=== PATIENT | male | born 1965 | race Caucasian/White ===

== ENCOUNTER 2020-04-29 05:42 | Outpatient (RCR) | payer MEDICAID, OTHER ==
[~2020-04-29] VITALS: Ht 177.8 cm; Wt 102.3 kg
[2020-04-29] MEDS ORDERED: LISI-552 PO (12:44)
[2020-04-29] MEDS ORDERED: SUCR1TAB PO (12:44)
[2020-04-29] MEDS ORDERED: DULO20CA19 PO (12:44)
[2020-04-29] MEDS ORDERED: RT-ALBUINH IH (12:44)
[2020-04-29] MEDS ORDERED: OMEP40CA27 PO (12:44)
== END 2020-04-29 12:45 | disposition home or self-care (01) ==
LOC: PREOP 05:42
PROVIDERS: ATTEND Surgery
DX: Z01.818 Encounter for other preprocedural examination (principal); K92.1 Melena; K92.0 Hematemesis; Z86.010 Personal history of colon polyps

== ENCOUNTER → 2020-05-03 | Outpatient (CLI) | payer OTHER ==
[~2020-05-03] MED LIST: DULO20CA19 PO; LISI-552 PO; OMEP40CA27 PO; RT-ALBUINH IH; SUCR1TAB PO
== END ==
LOC: LAB FS 10:20
PROVIDERS: ATTEND Surgery
DX: Z01.812 Encounter for preprocedural laboratory examination (principal); K92.0 Hematemesis; K92.1 Melena; Z86.010 Personal history of colon polyps; Z20.822 Contact with and (suspected) exposure to COVID-19
CPT/HCPCS: 87635

== ENCOUNTER 2020-05-27 06:25 | Outpatient (RCR) | payer MEDICAID ==
[~2020-05-27] VITALS: Ht 177.8 cm; Wt 102.1 kg
[2020-05-27] MEDS ORDERED: FLUT9.9S16 NS (12:13)
[2020-05-27] MEDS ORDERED: FEXO-45 PO (12:13)
== END 2020-05-27 13:22 | disposition home or self-care (01) ==
LOC: PREOP 06:25
PROVIDERS: ATTEND Surgery
DX: Z01.818 Encounter for other preprocedural examination (principal); K92.0 Hematemesis; Z86.010 Personal history of colon polyps

== ENCOUNTER → 2020-05-31 | Outpatient (CLI) | payer OTHER ==
[~2020-05-31] MED LIST changes: +FEXO-45 PO; +FLUT9.9S16 NS; -LISI-552 PO; +LISI20TA26 PO
== END ==
LOC: LAB FS 10:50
PROVIDERS: ATTEND Surgery
DX: Z01.812 Encounter for preprocedural laboratory examination (principal); K92.1 Melena; Z20.822 Contact with and (suspected) exposure to COVID-19; Z86.010 Personal history of colon polyps
CPT/HCPCS: 87635

== ENCOUNTER → 2020-06-21 | Outpatient (CLI) | payer MEDICAID, OTHER | LOC: LAB FS 10:20 | PROVIDERS: ATTEND Surgery | DX: Z01.812 Encounter for preprocedural laboratory examination (principal); K92.0 Hematemesis; Z20.822 Contact with and (suspected) exposure to COVID-19; Z86.010 Personal history of colon polyps | CPT/HCPCS: 87635 ==

== ENCOUNTER → 2020-06-24 | Day surgery (SDC) | payer MEDICAID, OTHER ==
[~2020-06-24] VITALS: Ht 177.8 cm; Wt 102.1 kg
[~2020-06-24] MED LIST changes: +HURRICAINE EXT TUBE (BENZOCAINE) XX PRN; +LACTATED RINGERS 1,000 ML IV ONE; +LACTATED RINGERS 1,000 ML IV STA; +MIDAZOLAM 5 MG/5 ML (VERSED) VIAL ONE; +PROPOFOL INJECTION 50 ML IV ONE
[2020-06-24 08:10] VITALS: BP 158/100
[2020-06-24 09:20] VITALS: BP 133/88
[2020-06-24 09:25] VITALS: BP 128/86
--- NOTE | 2020-06-24 09:34 | Progress Note-Post Operative ---
Post-Operative Progess Note Surgeon (s)/[employer] (s) Surgeon TITUS ODONNELL DO [employer]: KARIE Kelly Pre-Operative Diagnosis Hematemesis, Melena, Hx of polyp Post-Operative Diagnosis Gastritis hiatal hernia colon polyps diverticula internal hemorrhoids Procedure & Operative Findings Date of Procedure 06/24/20 Procedure Performed/Findings EGD with bx Colon with snare Colon with bx Anesthesia Type IV sedation by RENT COLLECTOR Estimated Blood Loss Estimated blood loss (mL): scant Specimens/Packing Specimens Removed antral bx body of stomach bx x 2 GE jxn x 2 asc polyp transverse polyp x 2 rectal polyp x4 TITUS ODONNELL DO Jun 24, 2020 09:34
[2020-06-24 09:35] VITALS: BP 128/86
--- NOTE | 2020-06-24 09:35 | Endoscopy Discharge Instruct ---
Endo Procedure/Findings Findings 1.: Hiatal Hernia, Gastritis 2.: Polyp 3.: Diverticulosis 4.: Internal Hemorrhoids Discharge Instructions - Activity: You might feel a little sleepy until tomorrow. This is due to the medicine you received to relax you. Until tomorrow, you should: NOT drive a car, operate machinery or power tools. NOT drink any alcoholic beverages. NOT make any important decisions or sign importortant papers. Do not return to work until tomorrow, unless otherwise instructed. Resume previous activities tomorrow. Diet: Start by taking liquids. If you tolerate liquids, advance to solid food. 1.: EGD in 1 year 2.: Colonoscopy in 1 year Notify Physician - If you experience excessive bleeding, unusual abdominal pain, fever, or chest pain, contact your doctor immediately. TITUS ODONNELL DO Jun 24, 2020 09:35
[2020-06-24 10:01] VITALS: BP 145/79
--- NOTE | 2020-06-24 12:49 | Anesthesia-General Post-Op ---
MAC Patient Condition Mental Status/LOC: Same as Preop Cardiovascular: Satisfactory Nausea/Vomiting: Absent Respiratory: Satisfactory Pain: Controlled Complications: Absent Post Op Complications Complications None Follow Up Care/Instructions Patient Instructions None needed. Anesthesiology Discharge Order Discharge Order Patient is doing well, no complaints, stable vital signs, no apparent adverse anesthesia problems. No complications reported per nursing. CARL PINK CRNA Jun 24, 2020 12:49
--- NOTE | 2020-06-25 02:43 | OPERATIVE REPORT ---
DATE OF SERVICE: PREOPERATIVE DIAGNOSES: Hematemesis, melena, history of colon polyps. POSTOPERATIVE DIAGNOSES: Gastritis, hiatal hernia, colon polyps, diverticula, internal hemorrhoids. PROCEDURES: 1. EGD with biopsy. 2. Colonoscopy with snare polypectomy. 3. Colonoscopy with cold biopsy. SURGEON: Manuel Haywood, DO HOSPICE CARE SALES CONSULTANT: Balaji Dennis, MS3. ANESTHESIA: IV sedation by the SPINNER OPEN END. SPECIMEN: Biopsy from the antrum, two biopsies of the body of stomach, two biopsies of the GE junction as well as a descending colon polyp, transverse colon polyp x2 and rectal polyp x4. PROCEDURE NOTE: After informed consent was obtained, the patient was brought to the endoscopy suite, placed in bed in left lateral decubitus position. He was administered IV sedation by the SPINNER OPEN END who then monitored his vitals the entire time, heart rate, blood pressure and pulse ox and we started with the EGD, placing scope down the mouth through the esophagus into the stomach, noted some changes at the GE junction and some gastritis, took a picture, pushed into the stomach and took a picture and pushed past the antrum into the duodenum, took a picture and then pulled back and retroflexed the scope, saw small hiatal hernia, did two biopsies of the body of stomach. Then pulled the scope into the GE junction and did two biopsies here. Pushed the scope back into the stomach, suctioned all the air out and then pulled the scope up the esophagus and out the mouth. Switched camera, switched gloves, went down below, started the colonoscopy, pushed in, on the way in, noted a polyp in the ascending colon, did a snare polypectomy of this, able to get to the cecum, took a picture of appendiceal orifice, noted the ileocecal valve and then slowly withdrew the scope insufflating to look circumferentially at the stevens looking the cecum, up the ascending colon to the hepatic flexure, then down the transverse colon. In the transverse colon, saw a flat polyp, did a biopsy of this and then encountered a large polyp in the transverse colon, did another snare polypectomy, then continued down to the splenic flexure and then into the descending colon and down into the sigmoid and finally into the rectum, retroflexed in rectal vault, saw four polyps, we were able to do snare polypectomy of all of these and then suction them up when I retroflexed the scope, saw some small internal hemorrhoids and then the scope was removed. The patient tolerated the procedure. He was recovered in endoscopy suite. Job ID: [id number] DocumentID: [id number] Dictated Date: 06/24/2020 19:36:31 Net Lead Developer Date: 06/25/2020 02:41:50 Dictated By: DO MIKE REESE
== END | disposition home or self-care (01) ==
LOC: ENDO 07:54
PROVIDERS: ATTEND Surgery
DX: D12.3 Benign neoplasm of transverse colon (principal); K63.5 Polyp of colon; D12.8 Benign neoplasm of rectum; K29.70 Gastritis, unspecified, without bleeding; K92.1 Melena; K44.9 Diaphragmatic hernia without obstruction or gangrene; K57.30 Diverticulosis of large intestine without perforation or abscess without bleeding; K64.8 Other hemorrhoids; K92.0 Hematemesis; I10 Essential (primary) hypertension; J45.909 Unspecified asthma, uncomplicated; K21.9 Gastro-esophageal reflux disease without esophagitis; F17.210 Nicotine dependence, cigarettes, uncomplicated; Z79.899 Other long term (current) drug therapy; Z79.51 Long term (current) use of inhaled steroids; Z86.010 Personal history of colon polyps
CPT/HCPCS: 88305

== ENCOUNTER 2020-08-24 06:31 | Emergency (ER) | payer OTHER ==
[~2020-08-24] VITALS: Ht 175.2 cm; Wt 95.0 kg
[~2020-08-24 06:31] MED LIST changes: -HURRICAINE EXT TUBE (BENZOCAINE) XX PRN; -LACTATED RINGERS 1,000 ML IV ONE; -LACTATED RINGERS 1,000 ML IV STA; -MIDAZOLAM 5 MG/5 ML (VERSED) VIAL ONE; -PROPOFOL INJECTION 50 ML IV ONE
[2020-08-24 07:03] LABS: BASOPHILS % (AUTO) 0 % (0-10); EOSINOPHILS # (AUTO) 0.3 10^3/uL (0.0-0.3); EOSINOPHILS % (AUTO) 3 % (0-10); HEMATOCRIT 46 % (40-54); HEMOGLOBIN 15.2 G/DL (13.3-17.7); LYMPHOCYTES # (AUTO) 2.3 X 10^3 (1.0-4.0); LYMPHOCYTES % (AUTO) 24 % (12-44); MEAN CORPUSCULAR HEMOGLOBIN 30 PG (25-34); MEAN CORPUSCULAR HGB CONC 33 G/DL (32-36); MEAN CORPUSCULAR VOLUME 92 FL (80-99); MEAN PLATELET VOLUME 10.6 FL (7.4-10.4); MONOCYTES # (AUTO) 1.1 X 10^3 (0.0-1.0); MONOCYTES % (AUTO) 12 % (0-12); NEUTROPHILS # (AUTO) 5.8 X 10^3 (1.8-7.8); NEUTROPHILS % (AUTO) 61 % (42-75); PLATELET COUNT 257 10^3/uL (130-400); WHITE BLOOD COUNT 9.6 10^3/uL (4.3-11.0)
[2020-08-24 07:21] LABS: ACETAMINOPHEN < 10 UG/ML (10-30); ALANINE AMINOTRANSFERASE 22 U/L (0-55); ALBUMIN 4.6 GM/DL (3.2-4.5); ALKALINE PHOSPHATASE 112 U/L (40-136); BILIRUBIN,TOTAL 0.5 MG/DL (0.1-1.0); BUN/CREATININE RATIO 7; CALCIUM 9.6 MG/DL (8.5-10.1); CARBON DIOXIDE 24 MMOL/L (21-32); CHLORIDE 95 MMOL/L (98-107); CREATININE SERUM 0.82 MG/DL (0.60-1.30); GFR ESTIMATED > 60; GLUCOSE 122 MG/DL (70-105); POTASSIUM 4.4 MMOL/L (3.6-5.0); SALICYLATE < 0.3 MG/DL (5.0-20.0); SODIUM 132 MMOL/L (135-145); TOTAL PROTEIN 8.4 GM/DL (6.4-8.2)
--- NOTE | 2020-08-24 07:43 | ED Psychosocial ---
General Chief Complaint: Psych/Social Disorder Stated Complaint: MENTAL EVALUATION Nursing Triage Note: Patient came to the ER for a mental health evaluation. Patient states that he is not suicidal but does appear to be having some mental health issues. Patient is very paranoid and emotional. Patient is unable to form a sentence that adequately conveys what he means. Patient is distractible and cannot have a full conversation about one subject. Patient has a history of alcohol abuse. Patient was in rehab approximately 3 weeks ago. Patients father is with him and states he has been like this for 2 weeks. History of Present Illness Date Seen by Provider: August 24, 2020 Time Seen by Provider: 07:00 Initial Comments 55-year-old male presents with his father (who he is currently living with for the past couple years) with concern of his not acting right or thinking clearly for the past 2 and half weeks since coming home from [facility] for drug and alcohol rehabilitation. Patient is confused and making any sense or thinking clearly. He is confused about his medications, he is paranoid, he is anxious. He denies any suicidal or homicidal ideation has not been violent. Allergies and Home Medications Allergies Coded Allergies: No Known Drug Allergies (Unverified , 04/29/20) Home Medications Duloxetine HCl 20 Mg Capsule.dr, 40 MG PO DAILY, (Reported) Fexofenadine HCl 60 Mg Tablet, 60 MG PO DAILY, (Reported) Fluticasone Furoate 5.9 Ml [place].susp, 5.9 ML NS DAILY, (Reported) Lisinopril 20 Mg Tablet, 20 MG PO DAILY, (Reported) Omeprazole 40 Mg Capsule.dr, 40 MG PO DAILY, (Reported) Sucralfate 1 Gm Tablet, 1 GM PO BIDAC, (Reported) Patient Home Medication List Home Medication List Reviewed: Yes Review of Systems Constitutional: No fever, No malaise, No weakness EENTM: no symptoms reported Respiratory: No cough, No short of breath Cardiovascular: No chest pain, No edema, No palpitations Gastrointestinal: No abdominal pain, No constipation, No diarrhea, No nausea, No vomiting Musculoskeletal: No back pain, No joint pain Skin: No change in color, No rash Psychiatric/Neurological: See HPI, Anxiety; Denies Headache, Denies Numbness, Denies Paresthesia, Denies Seizure Past Eibiudp-Extnqo-Atppio Hx Past Med/Social Hx: Reviewed Nursing Past Med/Soc Hx Patient Social History Alcohol Use: Past History Alcohol Beverage of Choice: Beer Smoking Status: Current Everyday Smoker Type Used: Cigarettes Recent Infectious Disease Expo: No Recent Hopitalizations: No Immunizations Up To Date PED Vaccines UTD: No Date of Influenza Vaccine: Jan 18, 2020 Seasonal Allergies Seasonal Allergies: Yes Past Medical History Surgeries: Yes (shoulder sx, ) Respiratory: Yes (morning congestion) Asthma Cardiac: Yes Hypertension Neurological: No Genitourinary: No Gastrointestinal: Yes (hematemesis, cysts on liver) Gastroesophageal Reflux, Polyps Musculoskeletal: No Endocrine: No HEENT: Yes (dentures) Cancer: No Psychosocial: Yes Anxiety Integumentary: Yes Psoriasis Blood Disorders: No Physical Exam Vital Signs - First Documented 08/24/20 06:54 Temp 36.8 Pulse 100 Resp 22 B/P (MAP) 164/88 (113) Pulse Ox 100 O2 Delivery Room Air Capillary Refill : Less Than 3 Seconds Height, Weight, BMI Height: '" Weight: lbs. oz. kg; 30.00 BMI Method: General Appearance: WD/WN, no apparent distress HEENT: PERRL/EOMI, normal ENT inspection Neck: non-tender, supple Respiratory: chest non-tender, lungs clear, normal breath sounds, no respiratory distress, no accessory muscle use Cardiovascular: regular rate, rhythm, no edema, no JVD Gastrointestinal: normal bowel sounds, non tender, soft Extremities: non-tender, no pedal edema Neurologic/Psychiatric: honey blender II-XII nml as tested, no motor/sensory deficits, alert, normal mood/affect, oriented x 3 Appearance/Memory: appropriate appearance, impaired insight, impaired recent memory Behavior/Eye Contact: cooperative, good eye contact, normal speech Thoughts/Hallucinations: delusions, flight of ideas, incoherent, paranoid Skin: normal color, warm/dry Progress/Results/Core Measures Results/Orders Lab Results Laboratory Tests Test 08/24/20 06:51 08/24/20 07:49 Range/Units White Blood Count 9.6 4.3-11.0 10^3/uL Red Blood Count 4.99 4.35-5.85 10^6/uL Hemoglobin 15.2 13.3-17.7 G/DL Hematocrit 46 40-54 % Mean Corpuscular Volume 92 80-99 FL Mean Corpuscular Hemoglobin 30 25-34 PG Mean Corpuscular Hemoglobin Concent 33 32-36 G/DL Red Cell Distribution Width 14.6 H 10.0-14.5 % Platelet Count 257 130-400 10^3/uL Mean Platelet Volume 10.6 H 7.4-10.4 FL Neutrophils (%) (Auto) 61 42-75 % Lymphocytes (%) (Auto) 24 12-44 % Monocytes (%) (Auto) 12 0-12 % Eosinophils (%) (Auto) 3 0-10 % Basophils (%) (Auto) 0 0-10 % Neutrophils # (Auto) 5.8 1.8-7.8 X 10^3 Lymphocytes # (Auto) 2.3 1.0-4.0 X 10^3 Monocytes # (Auto) 1.1 H 0.0-1.0 X 10^3 Eosinophils # (Auto) 0.3 0.0-0.3 10^3/uL Basophils # (Auto) 0.0 0.0-0.1 10^3/uL Sodium Level 132 L 135-145 MMOL/L Potassium Level 4.4 3.6-5.0 MMOL/L Chloride Level 95 L 98-107 MMOL/L Carbon Dioxide Level 24 21-32 MMOL/L Anion Gap 13 5-14 MMOL/L Blood Urea Nitrogen 6 L 7-18 MG/DL Creatinine 0.82 0.60-1.30 MG/DL Estimat Glomerular Filtration Rate > 60 BUN/Creatinine Ratio 7 Glucose Level 122 H 70-105 MG/DL Calcium Level 9.6 8.5-10.1 MG/DL Corrected Calcium 8.5-10.1 MG/DL Total Bilirubin 0.5 0.1-1.0 MG/DL Aspartate Amino Transf (AST/SGOT) 25 5-34 U/L Alanine Aminotransferase (ALT/SGPT) 22 0-55 U/L Alkaline Phosphatase 112 40-136 U/L Total Protein 8.4 H 6.4-8.2 GM/DL Albumin 4.6 H 3.2-4.5 GM/DL Salicylates Level < 0.3 L 5.0-20.0 MG/DL Acetaminophen Level < 10 L 10-30 UG/ML Serum Alcohol < 10 <10 MG/DL Urine Color YELLOW Urine Clarity CLEAR Urine pH 6.0 5-9 Urine Specific [place] 1.020 1.016-1.022 Urine Protein NEGATIVE NEGATIVE Urine Glucose (UA) NEGATIVE NEGATIVE Urine Ketones NEGATIVE NEGATIVE Urine Nitrite NEGATIVE NEGATIVE Urine Bilirubin NEGATIVE NEGATIVE Urine Urobilinogen 1.0 < = 1.0 MG/DL Urine Leukocyte Esterase NEGATIVE NEGATIVE Urine RBC (Auto) NEGATIVE NEGATIVE Urine RBC NONE /HPF Urine WBC 0-2 /HPF Urine Squamous Epithelial Cells 2-5 /HPF Urine Crystals NONE /LPF Urine Bacteria TRACE /HPF Urine Casts NONE /LPF Urine Mucus MODERATE H /LPF Urine Culture Indicated NO Urine Opiates Screen NEGATIVE NEGATIVE Urine Oxycodone Screen NEGATIVE NEGATIVE Urine Methadone Screen NEGATIVE NEGATIVE Urine Propoxyphene Screen NEGATIVE NEGATIVE Urine Barbiturates Screen NEGATIVE NEGATIVE Ur Tricyclic Antidepressants Screen NEGATIVE NEGATIVE Urine Phencyclidine Screen NEGATIVE NEGATIVE Urine Amphetamines Screen NEGATIVE NEGATIVE Urine Methamphetamines Screen NEGATIVE NEGATIVE Urine Benzodiazepines Screen NEGATIVE NEGATIVE Urine Cocaine Screen NEGATIVE NEGATIVE Urine Cannabinoids Screen NEGATIVE NEGATIVE My Orders Orders - FABIO MARTINEZ DO Ct Head Wo (08/24/20 07:43) Vital Signs/I&O 08/24/20 08/24/20 06:54 10:29 Temp 36.8 36.8 Pulse 100 87 Resp 22 20 B/P (MAP) 164/88 (113) 157/82 (113) Pulse Ox 100 100 O2 Delivery Room Air Blood Pressure Mean: 113 Progress Progress Note : Progress Note Patient delusional and paranoid without suicidal or homicidal ideation or threat to himself. His father is unable to take care of him any longer as he has become too much to handle. Looked through his bag and box of medications and no evidence of any antipsychotics, just naltrexone, lisinopril, omeprazole and Carafate along with a few [id number] medications. Urine drug screen is negative. Lab chemistries, EKG and head CT are all normal. Will get a MH screening for assistance MH screener worked out a safety plan and pt DC'd home with planned MH follow-up this week. Discussed w patient and his father and they express understanding. Advised return to the ER or call 911 for any crisis. Initial ECG Impression Date: August 24, 2020 Initial ECG Impression Time: 07:05 Initial ECG Rate: 95 Initial ECG Rhythm: Normal Sinus Initial ECG Impression: Normal Initial ECG Comparisson: No Previous ECG Available Diagnostic Imaging Comments Date of Exam:08/24/20 CT HEAD WO PROCEDURE: CT head without contrast. TECHNIQUE: Multiple contiguous axial images were obtained through the brain without the use of intravenous contrast. Auto Exposure Controls were utilized during the CT exam to meet ALARA standards for radiation dose reduction. INDICATION: New onset psychosis. COMPARISON: None available. FINDINGS: No intracranial hyperdense hemorrhage or space-occupying mass. No hydrocephalus or midline shift. Suarez-white matter differentiation is well-preserved. Pituitary is unremarkable. No cerebellar tonsillar ectopia. No skull fracture. Mastoid air cells are clear. Mild mucosal thickening in the ethmoid and maxillary sinuses. IMPRESSION: No acute intracranial process by CT. Dictated on workstation # [id number] Dict: 08/24/20 [id number] Trans: 08/24/2006 CVB [id number] Interpreted by: LUKE ROLEL MD Electronically signed by: Departure Impression Primary Impression: Acute psychosis Additional Impression: Mental status alteration Qualified Codes: R41.82 - Altered mental status, unspecified Disposition: 01 HOME, SELF-CARE (staying with his father (as responsible individual)) Condition: Stable Departure-Patient Inst. Decision time for Depature: 10:10 Referrals: ARASH,LOCAL PHYSICIAN (PCP) Primary Care Physician NATALY KWOK APRN (Family) Primary Care Physician Patient Instructions: Altered Mental Status (DC) Add. Discharge Instructions: You are advised to follow up with Mental Health this week. Return to the ER if you are having any significant trouble and need assistance. Otherwise continue your current medication as previously given: Lisinopril Carafate Pantaprozole Call your Primary Care Doctor to arrange a follow up appointment as well. All discharge instructions reviewed with patient and/or family. Voiced understanding. FABIO MARTINEZ DO August 24, 2020 07:43
[2020-08-24 07:58] LABS: BACTERIA,URINE TRACE /HPF; BILIRUBIN,URINE NEGATIVE (NEGATIVE); CLARITY,URINE CLEAR; COLOR,URINE YELLOW; GLUCOSE, URINE (UA) NEGATIVE (NEGATIVE); KETONES,URINE NEGATIVE (NEGATIVE); LEUKOCYTE ESTERASE ,URINE NEGATIVE (NEGATIVE); NITRITE,URINE NEGATIVE (NEGATIVE); PROTEIN,URINE NEGATIVE (NEGATIVE); WBC,URINE 0-2 /HPF
[2020-08-24 08:05] LABS: AMPHETAMINE SCREEN, URINE NEGATIVE (NEGATIVE); BARBITURATE SCREEN URINE NEGATIVE (NEGATIVE); BENZODIAZEPINES SCREEN URINE NEGATIVE (NEGATIVE); CANNABINOID SCREEN, URINE NEGATIVE (NEGATIVE); COCAINE SCREEN URINE NEGATIVE (NEGATIVE); METHADONE STAT NEGATIVE (NEGATIVE); METHAMPHETAMINE SCREEN URINE S NEGATIVE (NEGATIVE); OPIATE SCREEN URINE NEGATIVE (NEGATIVE); OXYCODONE STAT NEGATIVE (NEGATIVE); PROPOXYPHENE STAT NEGATIVE (NEGATIVE); TRICYCLIC ANTIDEPRESSANTS SCRE NEGATIVE (NEGATIVE)
--- NOTE | 2020-08-24 08:07 | Diagnostic Imaging Report ---
PROCEDURE: CT head without contrast. TECHNIQUE: Multiple contiguous axial images were obtained through the brain without the use of intravenous contrast. Auto Exposure Controls were utilized during the CT exam to meet ALARA standards for radiation dose reduction. INDICATION: New onset psychosis. COMPARISON: None available. FINDINGS: No intracranial hyperdense hemorrhage or space-occupying mass. No hydrocephalus or midline shift. Suarez-white matter differentiation is well-preserved. Pituitary is unremarkable. No cerebellar tonsillar ectopia. No skull fracture. Mastoid air cells are clear. Mild mucosal thickening in the ethmoid and maxillary sinuses. IMPRESSION: No acute intracranial process by CT. Dictated by: Dictated on workstation # [id number]
[2020-08-24 10:29] VITALS: BP 157/82
== END 2020-08-24 10:26 | disposition home or self-care (01) ==
LOC: EDUNIT# 06:31 → ER FS 06:34
DX: F23 Brief psychotic disorder (principal); R41.82 Altered mental status, unspecified; I10 Essential (primary) hypertension; J45.909 Unspecified asthma, uncomplicated; K21.9 Gastro-esophageal reflux disease without esophagitis; F41.9 Anxiety disorder, unspecified; F17.210 Nicotine dependence, cigarettes, uncomplicated; Z79.899 Other long term (current) drug therapy
CPT/HCPCS: 36415; 70450; 80053; 80306; 81000; 85025; 93005; 99283; G0480 ×3; 80320; 80329

== ENCOUNTER 2020-08-27 14:11 | Emergency (ER) | payer OTHER ==
--- NOTE | 2020-08-27 14:17 | ED General ---
General Stated Complaint: AMS History of Present Illness Date Seen by Provider: August 27, 2020 Time Seen by Provider: 14:17 Initial Comments 55-year-old female presents for evaluation. EMS was called the patient's office because he was "not acting right is sounds like he possibly could have had a pseudoseizure. Patient was "stumbling around at the office" they report that since last he has been getting worse. Patient was recently discharged from alcohol treatment 3 weeks ago. Patient laughing 1 minute and tearful the next. Patient denies relapsing. Patient was seen here 3 days ago for acute psychosis. At that time he had a negative head CT, negative alcohol and urine drug screen. Patient does not provide a lot of information. Office staff reports he is worse today than he was last Allergies and Home Medications Allergies Coded Allergies: No Known Drug Allergies (Unverified , 04/29/20) Home Medications Duloxetine HCl 20 Mg Capsule.dr, 40 MG PO DAILY, (Reported) Fexofenadine HCl 60 Mg Tablet, 60 MG PO DAILY, (Reported) Fluticasone Furoate 5.9 Ml [place].susp, 5.9 ML NS DAILY, (Reported) Lisinopril 20 Mg Tablet, 20 MG PO DAILY, (Reported) Omeprazole 40 Mg Capsule.dr, 40 MG PO DAILY, (Reported) Sucralfate 1 Gm Tablet, 1 GM PO BIDAC, (Reported) Patient Home Medication List Home Medication List Reviewed: Yes Review of Systems Review of Systems Constitutional: No chills, No fever EENTM: no symptoms reported Respiratory: no symptoms reported Cardiovascular: see HPI Gastrointestinal: no symptoms reported Genitourinary: no symptoms reported Musculoskeletal: no symptoms reported Skin: no symptoms reported Psychiatric/Neurological: See HPI Past Gcttxgx-Uryhbz-Rzvxxn Hx Past Med/Social Hx: Reviewed Nursing Past Med/Soc Hx Patient Social History Alcohol Beverage of Choice: Beer Type Used: Cigarettes Recent Hopitalizations: No Immunizations Up To Date PED Vaccines UTD: No Date of Influenza Vaccine: Jan 18, 2020 Seasonal Allergies Seasonal Allergies: Yes Past Medical History Surgeries: Yes (shoulder sx, ) Respiratory: Yes (morning congestion) Asthma Cardiac: Yes Hypertension Neurological: No Genitourinary: No Gastrointestinal: Yes (hematemesis, cysts on liver) Gastroesophageal Reflux, Polyps Musculoskeletal: No Endocrine: No HEENT: Yes (dentures) Cancer: No Psychosocial: Yes Anxiety Integumentary: Yes Psoriasis Blood Disorders: No Physical Exam Vital Signs Vital Signs - First Documented 08/27/20 14:16 Temp 36.5 Pulse 94 Resp 18 B/P (MAP) 131/76 (94) Pulse Ox 97 O2 Delivery Room Air Capillary Refill : Height, Weight, BMI Height: '" Weight: lbs. oz. kg; 30.00 BMI Method: General Appearance: Other (Anxious, very volatile mood some minute laughing the next tearful.) HEENT: PERRL/EOMI Neck: Full Range of Motion, Normal Inspection Respiratory: Lungs Clear, Normal Breath Sounds Cardiovascular: Regular Rate, Rhythm, No Edema Gastrointestinal: Non Tender, Soft Extremity: Normal Capillary Refill, Normal Inspection, Normal Range of Motion Neurologic/Psychiatric: Alert, brand activation manager II-XII Norm as Tested, Other (Labile mood, depressed, mild psychosis) Skin: Normal Color, Warm/Dry Progress/Results/Core Measures Suspected Sepsis SIRS Temperature: Pulse: Respiratory Rate: Laboratory Tests 08/27/20 14:20: White Blood Count 11.6H Blood Pressure / Mean: Laboratory Tests 08/27/20 14:20: Creatinine 0.76, Platelet Count 246, Total Bilirubin 0.6 Results/Orders Lab Results Laboratory Tests Test 08/27/20 14:20 08/27/20 14:30 08/27/20 14:35 Range/Units White Blood Count 11.6 H 4.3-11.0 10^3/uL Red Blood Count 4.71 4.35-5.85 10^6/uL Hemoglobin 14.3 13.3-17.7 G/DL Hematocrit 44 40-54 % Mean Corpuscular Volume 93 80-99 FL Mean Corpuscular Hemoglobin 30 25-34 PG Mean Corpuscular Hemoglobin Concent 33 32-36 G/DL Red Cell Distribution Width 14.1 10.0-14.5 % Platelet Count 246 130-400 10^3/uL Mean Platelet Volume 10.9 H 7.4-10.4 FL Immature Granulocyte % (Auto) 0 % Neutrophils (%) (Auto) 66 42-75 % Lymphocytes (%) (Auto) 22 12-44 % Monocytes (%) (Auto) 10 0-12 % Eosinophils (%) (Auto) 1 0-10 % Basophils (%) (Auto) 1 0-10 % Neutrophils # (Auto) 7.7 1.8-7.8 X 10^3 Lymphocytes # (Auto) 2.6 1.0-4.0 X 10^3 Monocytes # (Auto) 1.1 H 0.0-1.0 X 10^3 Eosinophils # (Auto) 0.2 0.0-0.3 10^3/uL Basophils # (Auto) 0.1 0.0-0.1 10^3/uL Immature Granulocyte # (Auto) 0.0 0.0-0.1 10^3/uL Sodium Level 132 L 135-145 MMOL/L Potassium Level 4.9 3.6-5.0 MMOL/L Chloride Level 96 L 98-107 MMOL/L Carbon Dioxide Level 26 21-32 MMOL/L Anion Gap 10 5-14 MMOL/L Blood Urea Nitrogen 8 7-18 MG/DL Creatinine 0.76 0.60-1.30 MG/DL Estimat Glomerular Filtration Rate > 60 BUN/Creatinine Ratio 11 Glucose Level 116 H 70-105 MG/DL Calcium Level 9.4 8.5-10.1 MG/DL Corrected Calcium 9.1 8.5-10.1 MG/DL Magnesium Level 2.2 1.6-2.4 MG/DL Total Bilirubin 0.6 0.1-1.0 MG/DL Aspartate Amino Transf (AST/SGOT) 40 H 5-34 U/L Alanine Aminotransferase (ALT/SGPT) 22 0-55 U/L Alkaline Phosphatase 94 40-136 U/L Troponin I < 0.30 <0.30 NG/ML Total Protein 8.1 6.4-8.2 GM/DL Albumin 4.4 3.2-4.5 GM/DL Serum Alcohol < 10 <10 MG/DL Glucometer 119 H 70-110 MG/DL Urine Color YELLOW Urine Clarity CLEAR Urine pH 6.0 5-9 Urine Specific [place] 1.010 L 1.016-1.022 Urine Protein NEGATIVE NEGATIVE Urine Glucose (UA) NEGATIVE NEGATIVE Urine Ketones NEGATIVE NEGATIVE Urine Nitrite NEGATIVE NEGATIVE Urine Bilirubin NEGATIVE NEGATIVE Urine Urobilinogen 1.0 < = 1.0 MG/DL Urine Leukocyte Esterase NEGATIVE NEGATIVE Urine RBC (Auto) NEGATIVE NEGATIVE Urine RBC NONE /HPF Urine WBC RARE /HPF Urine Squamous Epithelial Cells RARE /HPF Urine Crystals NONE /LPF Urine Bacteria NEGATIVE /HPF Urine Casts NONE /LPF Urine Mucus NEGATIVE /LPF Urine Culture Indicated NO Urine Opiates Screen NEGATIVE NEGATIVE Urine Oxycodone Screen NEGATIVE NEGATIVE Urine Methadone Screen NEGATIVE NEGATIVE Urine Propoxyphene Screen NEGATIVE NEGATIVE Urine Barbiturates Screen NEGATIVE NEGATIVE Ur Tricyclic Antidepressants Screen NEGATIVE NEGATIVE Urine Phencyclidine Screen NEGATIVE NEGATIVE Urine Amphetamines Screen NEGATIVE NEGATIVE Urine Methamphetamines Screen NEGATIVE NEGATIVE Urine Benzodiazepines Screen NEGATIVE NEGATIVE Urine Cocaine Screen NEGATIVE NEGATIVE Urine Cannabinoids Screen NEGATIVE NEGATIVE My Orders Orders - VAL ZAMBRANO DO Alcohol (08/27/20 14:23) Cbc With Automated Diff (08/27/20 14:23) Comprehensive Metabolic Panel (08/27/20 14:23) Drug Screen Stat (Urine) (08/27/20 14:23) Magnesium (08/27/20 14:23) Ua Culture If Indicated (08/27/20 14:23) Troponin I Fs (08/27/20 14:23) Vital Signs/I&O 08/27/20 14:16 Temp 36.5 Pulse 94 Resp 18 B/P (MAP) 131/76 (94) Pulse Ox 97 O2 Delivery Room Air Capillary Refill : Departure Impression Primary Impression: Acute reaction to situational stress Disposition: 01 HOME, SELF-CARE Condition: Stable Departure-Patient Inst. Referrals: NATALY KWOK APRN (PCP) Primary Care Physician [facility] (Family) Primary Care Physician Patient Instructions: Acute Psychosis (DC), Stress Add. Discharge Instructions: Follow-up with your primary care provider for continued evaluation and further outpatient work-up VAL ZAMBRANO DO August 27, 2020 14:17
[2020-08-27 14:38] LABS: HEMATOCRIT 44 % (40-54); HEMOGLOBIN 14.3 G/DL (13.3-17.7); MEAN CORPUSCULAR HEMOGLOBIN 30 PG (25-34); MEAN CORPUSCULAR HGB CONC 33 G/DL (32-36); MEAN CORPUSCULAR VOLUME 93 FL (80-99); MEAN PLATELET VOLUME 10.9 FL (7.4-10.4); PLATELET COUNT 246 10^3/uL (130-400); WHITE BLOOD COUNT 11.6 10^3/uL (4.3-11.0)
[2020-08-27 14:39] LABS: BASOPHILS % (AUTO) 1 % (0-10); EOSINOPHILS % (AUTO) 1 % (0-10); LYMPHOCYTES # (AUTO) 2.6 X 10^3 (1.0-4.0); LYMPHOCYTES % (AUTO) 22 % (12-44); MONOCYTES # (AUTO) 1.1 X 10^3 (0.0-1.0); MONOCYTES % (AUTO) 10 % (0-12); NEUTROPHILS # (AUTO) 7.7 X 10^3 (1.8-7.8); NEUTROPHILS % (AUTO) 66 % (42-75)
[2020-08-27 14:40] LABS: BASOPHILS # (AUTO) 0.1 10^3/uL (0.0-0.1); EOSINOPHILS # (AUTO) 0.2 10^3/uL (0.0-0.3)
[2020-08-27 14:51] LABS: CLARITY,URINE CLEAR; COLOR,URINE YELLOW; GLUCOSE, URINE (UA) NEGATIVE (NEGATIVE); KETONES,URINE NEGATIVE (NEGATIVE); NITRITE,URINE NEGATIVE (NEGATIVE); PROTEIN,URINE NEGATIVE (NEGATIVE)
[2020-08-27 14:52] LABS: BACTERIA,URINE NEGATIVE /HPF; BILIRUBIN,URINE NEGATIVE (NEGATIVE); LEUKOCYTE ESTERASE ,URINE NEGATIVE (NEGATIVE); SQUAMOUS EPITHELIAL CELL,UR RARE /HPF; WBC,URINE RARE /HPF
[2020-08-27 15:07] LABS: AMPHETAMINE SCREEN, URINE NEGATIVE (NEGATIVE); BARBITURATE SCREEN URINE NEGATIVE (NEGATIVE); BENZODIAZEPINES SCREEN URINE NEGATIVE (NEGATIVE); CANNABINOID SCREEN, URINE NEGATIVE (NEGATIVE); COCAINE SCREEN URINE NEGATIVE (NEGATIVE); METHADONE STAT NEGATIVE (NEGATIVE); METHAMPHETAMINE SCREEN URINE S NEGATIVE (NEGATIVE); OPIATE SCREEN URINE NEGATIVE (NEGATIVE); OXYCODONE STAT NEGATIVE (NEGATIVE); PROPOXYPHENE STAT NEGATIVE (NEGATIVE); TRICYCLIC ANTIDEPRESSANTS SCRE NEGATIVE (NEGATIVE)
[2020-08-27 15:08] LABS: CARBON DIOXIDE 26 MMOL/L (21-32); CHLORIDE 96 MMOL/L (98-107); POTASSIUM 4.9 MMOL/L (3.6-5.0); SODIUM 132 MMOL/L (135-145)
[2020-08-27 15:09] LABS: ALANINE AMINOTRANSFERASE 22 U/L (0-55); ALKALINE PHOSPHATASE 94 U/L (40-136); BILIRUBIN,TOTAL 0.6 MG/DL (0.1-1.0); BUN/CREATININE RATIO 11; CALCIUM 9.4 MG/DL (8.5-10.1); CREATININE SERUM 0.76 MG/DL (0.60-1.30); GFR ESTIMATED > 60; GLUCOSE 116 MG/DL (70-105); MAGNESIUM 2.2 MG/DL (1.6-2.4); TOTAL PROTEIN 8.1 GM/DL (6.4-8.2)
[2020-08-27 15:10] LABS: ALBUMIN 4.4 GM/DL (3.2-4.5)
[2020-08-27 15:27] VITALS: BP 128/66
== END 2020-08-27 15:30 | disposition home or self-care (01) ==
LOC: EDUNIT# 14:11 → ER FS 14:14
DX: F43.0 Acute stress reaction (principal); I10 Essential (primary) hypertension; J45.909 Unspecified asthma, uncomplicated; K21.9 Gastro-esophageal reflux disease without esophagitis; F41.9 Anxiety disorder, unspecified; Z79.899 Other long term (current) drug therapy
CPT/HCPCS: 36415; 80053; 80306; 81000; 82947; 83735; 84484; 85025; 93005; 99284; G0480; 80320

== ENCOUNTER 2020-09-19 05:47 | Outpatient (CLI) | payer OTHER ==
[~2020-09-19] VITALS: Ht 175.3 cm; Wt 95.0 kg
[2020-09-19] MEDS ORDERED: LORA-404 PO (12:06)
[2020-09-19] MEDS ORDERED: RISP2TAB84 PO (12:07)
== END 2020-09-19 13:14 | disposition home or self-care (01) ==
LOC: PREOP 05:47
PROVIDERS: ATTEND Otolaryngology Otolaryngology/Facial Plastic Surgery
DX: Z01.818 Encounter for other preprocedural examination (principal)

== ENCOUNTER 2020-09-26 05:50 | Day surgery (SDC) | payer OTHER ==
[~2020-09-26] VITALS: Ht 175.3 cm; Wt 95.0 kg
[2020-09-26] VITALS (10 sets, daily range): BP systolic 112–143; BP diastolic 56–93
[~2020-09-26 05:50] MED LIST changes: +LORA-404 PO; -OMEP40CA27 PO; +OMEP40CA6 PO; +RISP2TAB84 PO
[2020-09-26] MEDS: LACTATED RINGERS 1,000 ML IV PRN ×2 (06:51→09:35)
[2020-09-26] MEDS ORDERED: proPOfol 200 MG/20 ML (DIPRIVAN) VIAL IV ONE (07:11)
[2020-09-26] MEDS ORDERED: LIDOCAINE PF 2% 5 ML (XYLOCAINE) VIAL ONE (07:11)
[2020-09-26] MEDS ORDERED: SEVOFLURANE (ULTANE) 15 ML INHAL SOLN ONE (07:11)
[2020-09-26] MEDS ORDERED: fentaNYL INJ 100 MCG/2 ML AMP ONE (07:11)
[2020-09-26] MEDS ORDERED: NEOSTIGMINE 3 MG/3 ML VIAL ONE (07:11)
[2020-09-26] MEDS ORDERED: GLYCOPYRROLATE 0.2 MG/ML (ROBINUL) 2 ML VIAL ONE (07:11)
[2020-09-26] MEDS ORDERED: ROCURONIUM 10 MG/ML 5 ML SYRINGE IV ONE (07:11)
[2020-09-26] MEDS ORDERED: ONDANSETRON 4 MG/2 ML (SDV) Z0FRAN ONE ×2 (07:11→09:09)
[2020-09-26] MEDS ORDERED: MIDAZOLAM 2 MG/2 ML (VERSED) VIAL ONE (07:11)
--- NOTE | 2020-09-26 07:14 | Progress Note-Pre Operative ---
Pre-Operative Progress Note H&P Reviewed The H&P was reviewed, patient examined and no changes noted. Date Seen by Provider: Sep 26, 2020 Time Seen by Provider: 06:30 Date H&P Reviewed: Sep 26, 2020 Time H&P Reviewed: 06:30 Pre-Operative Diagnosis: Right laryngeal lesion NORMA GORDON MD Sep 26, 2020 07:14
[2020-09-26] MEDS ORDERED: LIDOCAINE/EPI 1%-1:100,000 (XYLOCAINE) 20ML ONE (07:24)
--- NOTE | 2020-09-26 08:44 | Progress Note-Post Operative ---
Post-Operative Progess Note Surgeon (s)/International Student Advisor (s) Surgeon NORMA GORDON MD International Student Advisor n/a Pre-Operative Diagnosis Right laryngeal lesion Post-Operative Diagnosis same Post-Op Procedure Note Date of Procedure: Sep 26, 2020 Name of Procedure Performed: Directg Laryngosocpy with Biopsy of Right Arytenoid Mass Description & Findings Description and Findings: n/a Anesthesia Type get Estimated Blood Loss minimal Packing none. Specimen(s) collected/removed right laryngeal lesion for frozen section NORMA GORDON MD Sep 26, 2020 08:44
[2020-09-26] MEDS ORDERED: PROMETHAZINE INJ 25 MG/ML (PHENERGAN) AMP IV PRN (08:45)
[2020-09-26] MEDS ORDERED: HYDROcodone/APAP 5 MG/325 MG (LORTAB) TAB PO PRN (08:45)
[2020-09-26] MEDS ORDERED: ACETAMINOPHEN 325 MG TABLET PO PRN (08:45)
[2020-09-26] MEDS ORDERED: morphine INJ 10 MG/ML 1ML (SYR OR VIAL) ONE (09:09)
[2020-09-26] MEDS ORDERED: ONDANSETRON 4 MG/2 ML (SDV) Z0FRAN IVP PRN (09:15)
[2020-09-26] MEDS ORDERED: MEPERIDINE (DEMEROL) INJ 50 MG/ML IVP ONE (09:15)
[2020-09-26] MEDS ORDERED: PROMETHAZINE INJ 25 MG/ML (PHENERGAN) AMP IVP ONE (09:15)
[2020-09-26] MEDS ORDERED: HYDROmorphone 2 MG/ML VIAL (DILAUDID) IV ONE (09:15)
[2020-09-26] MEDS ORDERED: morphine INJ 10 MG/ML 1ML (SYR OR VIAL) IVP ONE (09:15)
--- NOTE | 2020-09-26 09:47 | Anesthesia-General Post-Op ---
General Patient Condition Mental Status/LOC: Same as Preop Cardiovascular: Satisfactory Nausea/Vomiting: Absent Respiratory: Satisfactory Pain: Controlled Complications: Absent Post Op Complications Complications None Follow Up Care/Instructions Patient Instructions None needed. Anesthesia/Patient Condition Patient Condition Patient is doing well, no complaints, stable vital signs, no apparent adverse anesthesia problems. No complications reported per nursing. AMADEO JOE CRNA Sep 26, 2020 09:47
== END 2020-09-26 11:10 | disposition home or self-care (01) ==
LOC: SDC 05:50
PROVIDERS: ATTEND Otolaryngology Otolaryngology/Facial Plastic Surgery
DX: D02.0 Carcinoma in situ of larynx (principal); I10 Essential (primary) hypertension; K21.9 Gastro-esophageal reflux disease without esophagitis; F41.9 Anxiety disorder, unspecified; F17.210 Nicotine dependence, cigarettes, uncomplicated; Z79.899 Other long term (current) drug therapy
CPT/HCPCS: 87081; 87636; 88305; 88331; 88341; 88342